=== PATIENT | male | born 2000 | race Caucasian/White ===

== ENCOUNTER 2025-01-28 15:58 | Inpatient (IN) | payer OTHER, SELFPAY ==
--- OUTSIDE RECORDS SUMMARY | 2025-01-28 02:11 | XMS_ITS | Encounter Summary ---
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 Appearing Eyelids Neck: Supple Respiratory: No respiratory distress Cardio-Vascular: Normal Rate Abdomen: Non-distended Neurological: No focal neurological deficits appreciated Skin: Warm, Dry ED COURSE & MEDICAL DECISION MAKING Labs TOXICOLOGY SCREEN, BLOOD - Abnormal Result Value Ref Range Acetaminophen Result,Blood <5 (*) 10 - 30 ug/mL Alcohol <10 <10 mg/dL Salicylate Level, Blood <1 <30 mg/dL CBC AND DIFFERENTIAL - Abnormal WBC 11.84 (*) 3.90 - 10.80 K/uL RBC 5.34 4.20 - 5.60 M/uL Hemoglobin 14.7 14.0 - 17.3 g/dL Hematocrit 44.8 40.0 - 49.0 % MCH 27.5 25.7 - 32.2 pg MCHC 32.8 32.0 - 36.0 g/dL MCV 84 82 - 102 fL RDW 13.6 12.0 - 15.0 % RDW-SD 41.8 32.9 - 69.6 fL Platelet Count 299 150 - 400 K/uL MPV 10.1 8.5 - 13.0 fL Neutrophil 64.0 43.0 - 74.0 % Lymphocyte 27.2 17.0 - 47.0 % Monocyte 7.3 5.0 - 12.0 % Eosinophil 0.5 0.1 - 6.0 % Basophil 0.3 0.0 - 2.0 % Immature Granulocyte ([place], Myelo, Promyelocyte) 0.7 0.0 - 5.0 % Absolute Neutrophil Count 7.58 1.50 - 8.10 K/uL Absolute Immature Granulocyte ([place], Myelo, Promyelocyte) 0.08 0.00 - 0.66 K/uL Absolute Lymphocyte Count 3.22 0.95 - 4.20 K/uL Absolute Monocyte Count 0.87 0.20 - 1.20 K/uL Absolute Eosinophil Count 0.06 0.06 - 0.60 K/uL Absolute Basophil Count 0.03 0.01 - 0.12 K/uL COMPREHENSIVE METABOLIC PANEL - Abnormal Sodium 137 135 - 146 mmol/L Potassium 4.1 3.4 - 5.2 mmol/L Chloride 99 98 - 110 mmol/L Total CO2/Bicarbonate 26 24 - 32 mmol/L Anion Gap 13 2 - 15 mmol/L BUN 16 6 - 20 mg/dL Creatinine, Blood 0.90 0.60 - 1.30 mg/dL Glucose, Blood 96 70 - 100 mg/dL Calcium 9.7 8.5 - 10.5 mg/dL Total Protein 7.8 6.2 - 8.2 g/dL Albumin, Blood 4.6 3.4 - 5.2 g/dL Globulin Result 3.2 g/dL AST (SGOT) 34 11 - 40 U/L ALT (SGPT) 56 (*) 7 - 40 U/L Alkaline Phosphatase 85 40 - 130 U/L Total Bilirubin 0.3 0.2 - 1.2 mg/dL Estimated GFR(CKD-EPI) >120 >=60 mL/min/BSA SARS COV2/INFLUENZA A/B AND RSV - Normal Coronavirus SARS-CoV-2 Negative Negative Influenza A Negative Negative Influenza B Negative Negative RSV by PCR Negative Negative Narrative: Test performed with [employer] GeneXpert SARS-CoV-2 PCR assay. Negative results do not preclude SARS-CoV-2 infections and should not be used as the sole basis for treatment or other patient management decisions. DRUG SCREEN, URINE Amphetamines Screen, Urine Negative Negative Barbiturates Screen, Urine Negative Negative Benzodiazepine Screen, Urine Negative Negative Buprenorphine Screen, Urine Negative Negative Cannabinoids Screen, Urine Negative Negative Cocaine Metabolite Screen, Urine Negative Negative Fentanyl Screen, Urine Negative Negative Methadone Screen, Urine Negative Negative Opiates Screen, Urine Negative Negative Oxycodone Screen, Urine Negative Negative Comment Comment: The cut-off concentration for a positive result for each drug is listed below: Drug Cut-off value Amphetamines >1000 ng/mL Barbiturates >200 ng/mL Benzodiazepines >300 ng/mL Buprenorphine >5 ng/mL Cannabinoids >50 ng/mL Cocaine >300 ng/mL Fentanyl >5.0 ng/mL Opiates >300 ng/mL Methadone >300 ng/mL Oxycodone >100 ng/mL This is only a screening; positive results are not confirmed by a second method; The results must be used for medical purposes only. CBC AND DIFFERENTIAL Narrative: The following orders were created for panel order CBC and Differential. Procedure Abnormality Status --------- ------ CBC and Differential[[id number]] Abnormal Final result Please view results for these tests on the individual orders. No orders to display 24M in ED observation for SI. The patient's initial ED note, vital signs, and lab results were reviewed and interpreted. The patient was reevaluated. I agree with medical clearance. Patient's behavioral condition continues to be unstable. The patient requires further observation to help determine final disposition. We will monitor the patient for significant changes in medical or psychiatric status, observe and treat for agitation, psychosis or withdrawal, coordinate care with the mental health team and ensure the patient'ssafety. Psychiatry has completed their evaluation. They have found a bed for the patient at [facility]. Accepting MD is Dr. Ray. Patient taken out of ED observation and transferred to this facility in stable condition. Clinical Impression Suicidal ideation (Primary) Gerard Stringer MD 01/28/25 1315 * Psych Progress Note - Catherine Sutlana - 01/28/2025 6:08 AM EDT Tabitha is waiting for admission to [facility]. * Attestation Note - Yan Batista MD - 01/28/2025 2:11 AM EDT [facility] ED Attestation Note 24-year-old male presenting with suicidal ideation. Seen by behavioral health team and he reports he wants to kill himself. Patient on section 12. Plan for inpatient psychiatric hospitalization. Planfor ED observation for ongoing management. Patient seen primarily by PA. I approved management plan. Please see their note for full details regarding this patient encounter. I personally made/approved the management plan and take responsibility for the patient management. MD Yan Loo MD 01/28/25 0455 documented in this encounter Plan of Treatment Not on file documented as of this encounter Procedures Procedure Name Priority Date/Time Associated Diagnosis Comments SARS COV2/INFLUENZA A/B AND RSV STAT 01/28/2025 5:53 AM EDT DRUG SCREEN, URINE STAT 01/28/2025 5: 53 AM EDT CBC AND DIFFERENTIAL STAT 01/28/2025 5:44 AM EDT TOXICOLOGY SCREEN, BLOOD STAT 01/28/2025 5:44 AM EDT CBC AND DIFFERENTIAL STAT 01/28/2025 5:44 AM EDT COMPREHENSIVE METABOLIC PANEL STAT 01/28/2025 5:44 AM EDT documented in this encounter Results * Covid/Flu/RSV (Rapid) (01/28/2025 5:53 AM EDT) Coronavirus SARS-CoV-2 Negative Negative 01/28/2025 6:35 AM EDT [facility] Influenza A Negative Negative 01/28/2025 6:35 AM EDT [facility] Influenza B Negative Negative 01/28/2025 6:35 AM EDT [facility] RSV by PCR Negative Negative 01/28/2025 6:35 AM [facility] Respiratory SWAB OF INTERNAL NOSE / Unknown Collection / Unknown 01/28/2025 5:53 AM EDT 01/28/2025 5:56 AM EDT [facility] - 01/28/2025 6:35 AM EDT Test performed with [employer] GeneXpert SARS-CoV-2 PCR assay. Negative results do not preclude SARS-CoV-2 infections and should not be used as the sole basis for treatment or other patient management decisions. us Yan Batista MD BODY FLUIDS AND STOOLS ORD ERABLES Final Result [facility] [address] [place] [address], * Drug Screen, Urine (01/28/2025 5:53 AM EDT) Amphetamines Screen, Urine Negative Negative 01/28/2025 7:07 AM [facility] Barbiturates Screen, Urine Negative Negative [facility] Benzodiazepine Screen, Urine Negative Negative 01/28/2025 7:07 AM [facility] Buprenorphine Screen, Urine Negative Negative 01/28/2025 7:07 AM [facility] Cannabinoids Screen, Urine Negative Negative 01/28/2025 7:07 AM [facility] Cocaine Metabolite Screen, Urine Negative Negative 01/28/2025 7:07 AM [facility] Fentanyl Screen, Urine Negative Negative 01/28/2025 7:07 AM [facility] Methadone Screen, Urine Negative Negative 01/28/2025 7:07 AM [facility] Opiates Screen, Urine Negative Negative 01/28/2025 7:07 AM [facility] Oxycodone Screen, Urine Negative Negative [facility]25 7[facility] Comment 01/28/2025 7:07 AM [facility] Comment: The cut-off concentration for a positive result for each drug is listed below: Drug Cut-off value Amphetamines >1000 ng/mL Barbiturates >200 ng/mL Benzodiazepines >300 ng/mL Buprenorphine >5 ng/mL Cannabinoids >50 ng/mL Cocaine >300 ng/mL Fentanyl >5.0 ng/mL Opiates >300 ng/mL Methadone >300 ng/mL Oxycodone >100 ng/mL This is only a screening; positive results are not confirmed by a second method; The results must be used for medical purposes only. Urine URINE SPECIMEN / Unknown Collection / Unknown 01/28/2025 5:53 AM EDT 01/28/2025 5:56 AM EDT us Dana ACEVEDO URINE ORDERABLES Final Result [facility] [address] [place] [address], [place] * (ABNORMAL) Comprehensive Metabolic Panel (01/28/2025 5:44 AM EDT) Sodium 137 135 - 146 mmol/L 01/28/2025 6:33 AM [facility] Potassium 4.1 3.4 - 5.2 mmol/L 01/28/2025 6:33 AM [facility] Chloride 99 98 - 110 mmol/L 01/28/2025 6:33 AM [facility] Total CO2/Bicarbonate 26 24 - 32 mmol/L 01/28/2025 6:33 AM [facility] Anion Gap 13 2 - 15 mmol/L 01/28/2025 6:33 AM [facility] BUN 16 6 - 20 mg/dL 01/28/2025 6:33 AM [facility] Creatinine, Blood 0.90 0.60 - 1.30 mg/dL 01/28/2025 6:33 AM [facility] Glucose, Blood 96 70 - 100 mg/dL 01/28/2025 6:33 AM [facility] Calcium 9.7 8.5 - 10.5 mg/dL 01/28/2025 6:33 AM [facility] Total Protein 7.8 6.2 - 8.2 g/dL 01/28/2025 6:33 AM [facility] Albumin, Blood 4.6 3.4 - 5.2 g/dL 01/28/2025 6:33 AM [facility] Globulin Result 3.2 g/dL 6:33 AM [facility] AST (SGOT) 34 11 - 40 U/L 01/28/2025 6:33 AM [facility] ALT (SGPT) 56(H) 7 - 40 U/L 01/28/2025 6:33 AM [facility] Alkaline Phosphatase 85 40 - 130 U/L 01/28/2025 6:33 AM [facility] Total Bilirubin 0.3 0.2 - 1.2 mg/dL 01/28/2025 6:33 AM [facility] Estimated GFR(CKD-EPI) >120 >=60 mL/min/BSA 01/28/2025 6:33 AM [facility] Blood PERIPHERAL BLOOD SPECIMEN / Unknown Venipuncture / Unknown 01/28/2025 5:44 AM EDT 01/28/2025 5:51 AM EDT us Dana ACEVEDO LAB BLOOD ORDERABLES Final Resul t [facility] [address] [place] [address], [place] * (ABNORMAL) CBC and Differential (01/28/2025 5:44 AM EDT) WBC 11.84(H) 3.90 - 10.80 K/uL 01/28/2025 5:55 AM [facility] RBC 5.34 4.20 - 5.60 M/uL 01/28/2025 5:55 AM [facility] Hemoglobin 14.7 14.0 - 17.3 g/dL 01/28/2025 5:55 AM [facility] Hematocrit 44.8 40.0 - 49.0 % 01/28/2025 5:55 AM [facility] MCH 27.5 25.7 - 32.2 pg 01/28/2025 5:55 AM [facility] MCHC 32.8 32.0 - 36.0 g/dL 01/28/2025 5:55 AM [facility] MCV 84 82 - 102 fL 01/28/2025 5:55 AM [facility] RDW 13.6 12.0 - 15.0 % 01/28/2025 5:55 AM [facility] RDW-SD 41.8 32.9 - 69.6 fL 01/28/2025 5:55 AM [facility] Platelet Count 299 150 - 400 K/uL 01/28/2025 5:55 AM [facility] MPV 10.1 8.5 - 13.0 fL 01/28/2025 5:55 AM [facility] Neutrophil 64.0 43.0 - 74.0 % 01/28/2025 5:55 AM [facility] Lymphocyte 27.2 17.0 - 47.0 % 01/28/2025 5:55 AM [facility] Monocyte 7.3 5.0 - 12.0 % 01/28/2025 5:55 AM [facility] Eosinophil 0.5 0.1 - 6.0 % 01/28/2025 5:55 AM [facility] Basophil 0.3 0.0 - 2.0 % 01/28/2025 5:55 AM [facility] Immature Granulocyte ([place], Myelo, Promyelocyte) 0.7 0.0 - 5.0 % 01/28/2025 5:55 AM [facility] Absolute Neutrophil Count 7.58 1.50 - 8.10 K/uL 01/28/2025 5:55 AM [facility] Absolute Immature Granulocyte ([place], Myelo, Promyelocyte) 0.08 0.00 - 0.66 K/uL 01/28/2025 5:55 AM [facility] Absolute Lymphocyte Count 3.22 0.95 - 4.20 K/uL 01/28/2025 5:55 AM EDT [facility] Absolute Monocyte Count 0.87 0.20 - 1.20 K/uL 01/28/2025 5:55 AM EDT [facility] Absolute Eosinophil Count 0.06 0.06 - 0.60 K/uL 01/28/2025 5:55 AM EDT [facility] Absolute Basophil Count 0.03 0.01 - 0.12 K/uL 01/28/2025 5:55 AM EDT [facility] Blood PERIPHERAL BLOOD SPECIMEN / Unknown Venipuncture / Unknown 01/28/2025 5:44 AM EDT 01/28/2025 5:51 AM EDT us Danagertrudis Kimballa PA LAB BLOOD ORDERABLES Final Resul t Performing Organization Address City/[facility] Co de Phone Number [facility] [address] [place] [address], [place] * (ABNORMAL) Plasma Toxicology Screen (01/28/2025 5:44 AM EDT) Acetaminophen Result,Blood <5(L) 10 - 30 ug/mL 01/28/2025 6:52 AM EDT [facility] Alcohol <10 <10 mg/dL 01/28/2025 6:52 AM [facility] Salicylate Level, Blood <1 <30 mg/dL 01/28/2025 6:52 AM EDT [facility] Blood PERIPHERAL BLOOD SPECIMEN / Unknown Venipuncture / Unknown 01/28/2025 5:44 AM EDT 01/28/2025 5:51 AM EDT us Dana Jazmine Kimballa PA LAB BLOOD ORDERABLES Final Resul t Performing Organization Address [facility] Co de Phone Number [facility] [address] [place] [address], [place] documented in this encounter Visit Diagnoses Diagnosis Suicidal ideation- Primary Major depressive disorder, recurrent, severe without psychotic features (CMS-HCC) documented in this encounter Additional Health Concerns Infection Onset Date Last Indicated Resolved Time Rule-Out Respiratory Virus 01/28/2025 01/28/2025 1 6:35 AM EDT documented as of this encounter Care Teams Birth Certificate Clerk Relationship Specialty Start Date End Date Mukul Grajeda [address] [place] [id number] PCP - Insurance Assigned PCP 04/20/23 Unknown, Provider, [address] [place] [id number] PCP - General 01/28/25 Unknown, Provider, [address] [place] [address] 01/01/25 documented as of this encounter
[2025-01-28 16:11] VITALS: BMI 46.6
[2025-01-28 16:12] VITALS: BP 140/88; PULSE 90; RESP 16; TEMP 36.4; O2SAT 99
--- NOTE | 2025-01-28 19:15 | PC.ADMIT ---
Tabitha is a 24 yr old male admitted to [facility], on a CV, from [facility]. He was BIBA to [facility] [place] after being found in his car on the side of the road, in his car, crying & banging his head on the steering wheel. Tabitha had been speeding on the highway with a plan to kill himself. He told EMS that his life is worthless, he is a disappointment, and nobody is proud of him. His mother reported that before leaving home in his car, he was crying & inconsolable. Tabitha is A&O x 4, very subdued, with limited participation during the admission process. He was quiet & cooperative with clothing changeover. Tabitha avoided eye contact, looking downward, endorsing high depression & anxiety.? When asked if he?s feeling suicidal, Tabitha wouldn?t answer the question, but he was able to contract for safety here on the unit. He denies HI/AVH. Trauma history wasn?t discussed.? He only drinks alcohol only occasionally & smokes marijuana occasionally. Tox screen was negative.. His skin check is unremarkable with the exception of small abrasion on his forehead. Tabitha was oriented to the unit & placed on 15 min safety checks.
[2025-01-28 19:49] VITALS: BP 116/73; PULSE 109; RESP 18; TEMP 36.4; O2SAT 94
--- OUTSIDE RECORDS SUMMARY | 2025-01-28 20:06 | XMS_ITS | Encounter Summary ---
Author Organization [facility] iance Address [address] [place] [address] Care Team Providers Care Waste Management Recycling Technician Name Role Phone Mukul Grajeda MD Primary Care Provider + [phone] Mukul Grajeda MD Unavailable [phone] Reason for Visit * Reason Onset Date Comments Med Question 04/19/2024 ZEPBOUND Encounter Details Date Type Department Care Team ([facility] st Contact Info) Description 04/19/[address] [place] [address] Mukul Grajeda MD [address] [place], [place] [id number] Med Question (ZEPBOUND) Social History Tobacco Use Types Packs/Day Years Used Date Smoking Tobacco: Never Smokeless Tobacco: Never Sex and Gender Information Value Date Recorded Sex Assigned at Not on file Legal Sex Male 3:01 PM EDT Gender Identity Male 02/08/2024 10:16 AM EST Sexual Orientation Queer, pansexual, an d/or questioning 02/08/2024 10:16 AM EST documented as of this encounter Miscellaneous Notes * Telephone Encounter - Ana Parnellque - 04/19/2024 12:44 PM EST Sukumar, RX for zepbound received.[facility] together w/[facility] has updated their GLP-1 for weight loss Criteria. Trial and failure of >= three months of Phentermine or one of the following, Contraindication OR adverse reaction to phentermine that is allergic in nature or cannot be expected or managed as part of weight loss therapy. Please review documented in this encounter Plan of Treatment Not on file documented as of this encounter Visit Diagnoses Not on filedocumented in this encounter Care Teams Waste Management Recycling Technician Relationship Specialty Start Date End Date Mukul Grajeda MD [address] [place] [id number] PCP - General Family Medicine 03/05/20 Mukul Grajeda MD [address] [place] [address] PCP - Insurance PCP 02/08/24 documented as of this encounter
--- OUTSIDE RECORDS SUMMARY | 2025-01-28 20:06 | XMS_ITS | Encounter Summary ---
Author Organization [facility] Address [address] [place] [address] Care Team Providers Care Quantitative Equity Head Name Role Phone Unknown, Provider Unavailable Unavailable Mukul Grajeda Unavailable [phone] Unknown, Provider Primary Care Provider Unava ilable Encounter Details Date Type Department Care Team (Latest Contact Info) Description 01/28/2025 Travel Social History Tobacco Use Types Packs/Day Years [...] any time in the past 12 m [facility], were you homeless or living in a prison (including now)? No 01/01/2025 [facility] Utilities Answer Date Recorded In the [...] on file documented as of this encounter Functional Status * Are you deaf or do you have serious difficulty hearing? Answer Date of Assessment Author No 01/28/2025 2:36 AM EDT Jazmine Mccauley * Are you blind or do you have serious difficulty seeing, even when wearing glasses? Answer Date of Assessment Author No 01/28/2025 2:36 AM EDT Garrick A shley * Do you have serious difficulty walking or climbing stairs? Answer Date of Assessment Author No 01/28/2025 2:36 AM EDT Garrick A shley * Do you have difficulty dressing or bathing? Answer Date of Assessment Author No 01/28/2025 2:36 AM EDT Garrick A shley * Because of a physical, mental, or emotional condition, do you have difficulty doing errands alone such as visiting the doctor? Answer Date of Assessment Author No 01/28/2025 2:36 AM EDT Garrick A michiley documented as of this encounter Mental Status * Because of a physical, mental, or emotional condition, do you have serious difficulty concentrating, remembering, or making decisions? Answer Entry Date Author No 01/28/2025 2:36 AM EDT Jazmine Mccauley documented in this encounter Plan of Treatment Not on file documented as of this encounter Visit Diagnoses Not on filedocumented in this encounter Additional Health Concerns Infection Onset Date Last Indicated Resolved Time Rule-Out Respiratory Virus 01/28/2025 01/28/2025 1 6:35 AM EDT documented as of this encounter Care Teams Quantitative Equity Head Relationship Specialty Start Date End Date Mukul Grajeda [address] [place] [id number] PCP - Insurance Assigned PCP 04/20/23 Unknown, Provider, [address] [place] [id number] PCP - General 01/28/25 Unknown, Provider, [address] [place] [address] 01/01/25 documented as of this encounter
--- OUTSIDE RECORDS SUMMARY | 2025-01-28 20:06 | XMS_ITS | Encounter Summary ---
Author Organization [employer] [facility] iance Address [address] [place] [address] Care Team Providers Care Extra Gang Supervisor Name Role Phone Mukul Grajeda MD Primary Care Provider + [phone] Mukul Grajeda MD Unavailable [phone] Reason for Visit * Reason Onset Date Comments Imm/Inj 02/08/2024 tdap Encounter Details Date Type Department Care Team ([facility] st Contact Info) Description 02/08/[address] [place] [address] Mukul Grajeda MD [address] [place] [address] Imm/Inj (tdap) Social History Tobacco Use Types Packs/Day Years Used Date Smoking Tobacco: Never Smokeless Tobacco: Never Sex and Gender Information Value Date Recorded Sex Assigned at Not on file Legal Sex Male 3:01 PM EDT Gender Identity Male 02/08/2024 10:16 AM EST Sexual Orientation Queer, pansexual, an d/or questioning 02/08/2024 10:16 AM EST documented as of this encounter Miscellaneous Notes * Telephone Encounter - Susi Olivera - 02/08/2024 10:45 AM EST Nurse from [facility] called the [facility] to complete a benefit analysis for the tdap Vaccine. The vaccine is covered under the patient???s [facility] medical coverage. Please choose Private documented in this encounter Plan of Treatment Not on file documented as of this encounter Visit Diagnoses Not on filedocumented in this encounter Care Teams Extra Gang Supervisor Relationship Specialty Start Date End Date Mukul Grajeda MD [address] [place] [address] PCP - General Family Medicine 03/05/20 Mukul Grajeda MD [address] [place] [address] PCP - Insurance PCP 02/08/24 documented as of this encounter
--- OUTSIDE RECORDS SUMMARY | 2025-01-28 20:06 | XMS_ITS | Clinical Summary ---
Author Organization [facility] Address [address] [place] [address] Care Team Providers Care Sign Artist Name Role Phone Unknown, Provider Unavailable Unavailable Mukul Grajeda Unavailable [phone] Unknown, Provider Primary Care Provider Unava ilable Allergies Active Allergy Reactions Criticality Noted Date Comments Amoxicillin Unknown 11/15/2019 Penicillins Rash Low 01/01/2025 Medications HYDROcodone-acetami nophen (NORCO) 5-325 mg per tablet Take 1 tablet by mouth every 4 hours as needed for pain. 15 tablet 0 Active ondansetron (ZOFRAN ODT) 4 MG disintegrating tablet Take 1 tablet (4 mg total) by mouth every 8 hours as needed for nausea. 15 tablet 0 Active ondansetron (ZOFRAN) 4 MG tablet Take 1 tablet (4 mg total) by mouth every 6 hours for 12 doses. 12 tablet 4 Active tamsulosin (FLOMAX) 0.4 mg cap 24 hr capsule Take 1 capsule (0.4 mg total) by mouth daily for 15 doses. 15 capsule 4 Active oxyCODONE-acetamino phen (PERCOCET) 5-325 mg per tablet Take 1 tablet by mouth every 6 hours as needed for pain for up to 15 doses. 15 tablet 4 Active Encounters Date Type Department Care Team Description 01/28/2025 2:11 AM EDT - 01/28/2025 2:08 PM EDT Hospital Encounter [facility] Emergency Department [address] [place] [address] Yan Batista MD Shestak, Christopher, MD Suicidal ideation (Primary Dx); Major depressive disorder, recurrent, severe without psychotic features (CMS-HCC) Discharge Disposition: Psychiatric Hospital 01/28/2025 Travel 01/01/2025 7:41 PM EDT - 01/01/2025 10:17 PM EDT Emergency [facility] [address] [place] [id number] Marijuana use (Primary Dx) Discharge Disposition: Home or Self Care 01/01/2025 Travel from Last 3 Months Family History Medical History Relation Comments Bipolar disorder Cousin Suicide Cousin Depression Maternal Grandmother Depression Sister Relation Status Comments Cousin Maternal Grandmother Sister Social History Tobacco Use Types Packs/Day Years [...] any time in the past 12 m [place], were you homeless or living in a assisted (including now)? No 01/01/2025 [facility] Utilities Answer Date Recorded In the past 12 months has th e [employer], gas, oil, or water company threatened to [...] PM EDT Sexual Orientation Not on file Last Filed Vital Signs Vital Sign Reading [...] Mass Index 46.46 01/28/2025 2:22 AM EDT Plan of Treatment Health Maintenance Due Date Last Done Comments Depression Screening 2006 Meningococcal B Vaccines (1 of 2 - Standard) 2018 Hepatitis C Screening 2020 DTaP,Tdap,and Td Vaccines (1 - Tdap) 2021 02/08/2024 COVID-19 Vaccine (1 - 2023-2 5 season) 2024 02/08/2024 Influenza Vaccine (#1) 2024 4, 03/16/2022 Blood Pressure 01/01/2026 01/28/2025 Meningococcal Vaccines Aged Out No lo nger eligible based on patient's age to complete this topic Pneumococcal Vaccine Aged Out No long er eligible based on patient's age to complete this topic Procedures Procedure Name Priority Date/Time Associated Diagnosis Comments SARS COV2/INFLUENZA A/B AND RSV STAT 01/28/2025 5:53 AM EDT DRUG SCREEN, URINE STAT 01/28/2025 5: 53 AM EDT CBC AND DIFFERENTIAL STAT 01/28/2025 5:44 AM EDT COMPREHENSIVE METABOLIC PANEL STAT 01/28/2025 5:44 AM EDT CBC AND DIFFERENTIAL STAT 01/28/2025 5:44 AM EDT TOXICOLOGY SCREEN, BLOOD STAT 01/28/2025 5:44 AM EDT ECG 12-LEAD STAT 01/01/2025 7:55 PM EDT from Last 3 Months Results * Covid/Flu/RSV (Rapid) (01/28/2025 5:53 AM EDT) Coronavirus SARS-CoV-2 Negative Negative 01/28/2025 6:35 AM EDT [facility] Influenza A Negative Negative 01/28/2025 6:35 AM EDT [facility] Influenza B Negative Negative 01/28/2025 6:35 AM EDT [facility] RSV by PCR Negative Negative 01/28/2025 6:35 AM [facility] Respiratory SWAB OF INTERNAL NOSE / Unknown Collection / Unknown 01/28/2025 5:53 AM EDT 01/28/2025 5:56 AM EDT [facility] - 01/28/2025 6:35 AM EDT Test performed with [employer] GeneXpert SARS-CoV-2 PCR assay. Negative results do not preclude SARS-CoV-2 infections and should not be used as the sole basis for treatment or other patient management decisions. us Yan Batista MD BODY FLUIDS AND STOOLS ORD ERABLES Final Result [facility] [address] [place] [address], * Drug Screen, Urine (01/28/2025 5:53 AM EDT) Amphetamines Screen, Urine Negative Negative 01/28/2025 7:07 AM EDT [facility] Barbiturates Screen, Urine Negative Negative 01/28/2025 7:07 AM EDT [facility] Benzodiazepine Screen, Urine Negative Negative 01/28/2025 7:07 AM EDT [facility] Buprenorphine Screen, Urine Negative Negative 01/28/2025 7:07 AM EDT [facility] Cannabinoids Screen, Urine Negative Negative 01/28/2025 7:07 AM EDT [facility] Cocaine Metabolite Screen, Urine Negative Negative 01/28/2025 7:07 AM [facility] Fentanyl Screen, Urine Negative Negative 01/28/2025 7:07 AM [facility] Methadone Screen, Urine Negative Negative 01/28/2025 7:07 AM [facility] Opiates Screen, Urine Negative Negative 01/28/2025 7:07 AM [facility] Oxycodone Screen, Urine Negative Negative 01/28/2025 7:07 AM [facility] Comment 01/28/2025 7:07 AM [facility] Comment: The cut-off concentration [...] us Dana ACEVEDO URINE ORDERABLES Final Result [facility] [address] [place] [address], [place] * (ABNORMAL) CBC and Differential (01/28/2025 5:44 AM EDT) WBC 11.84(H) 3.90 - 10.80 K/uL 01/28/2025 5:55 AM EDT [facility] RBC 5.34 4.20 - 5.60 M/uL 01/28/2025 5:55 AM [facility] Hemoglobin 14.7 14.0 - 17.3 g/dL 01/28/2025 5:55 AM [facility] Hematocrit 44.8 40.0 - 49.0 % 01/28/2025 5:55 AM [facility] MCH 27.5 25.7 - 32.2 pg 01/28/2025 5:55 AM [facility] MCHC 32.8 32.0 - 36.0 g/dL 01/28/2025 5:55 AM [facility] MCV 84 82 - 102 fL 01/28/2025 5:55 AM [facility] RDW 13.6 12.0 - 15.0 % 01/28/2025 5:55 AM [facility] RDW-SD 41.8 32.9 - 69.6 fL 01/28/2025 5:55 AM [facility] Platelet Count 299 150 - 400 K/uL 01/28/2025 5:55 AM [facility] MPV 10.1 8.5 - 13.0 fL 01/28/2025 5:55 AM [facility] Neutrophil 64.0 43.0 - 74.0 % 01/28/2025 5:55 AM [facility] Lymphocyte 27.2 17.0 - 47.0 % 01/28/2025 5:55 AM [facility] Monocyte 7.3 5.0 - 12.0 % 01/28/2025 5:55 AM [facility] Eosinophil 0.5 0.1 - 6.0 % 01/28/2025 5:55 AM [facility] Basophil 0.3 0.0 - 2.0 % 01/28/2025 5:55 AM [facility] Immature Granulocyte ([place], Myelo, Promyelocyte) 0.7 0.0 - 5.0 % 01/28/2025 5:55 AM [facility] Absolute Neutrophil Count 7.58 1.50 - 8.10 K/uL 01/28/2025 5:55 AM [facility] Absolute Immature Granulocyte ([place], Myelo, Promyelocyte) 0.08 0.00 - 0.66 K/uL 01/28/2025 5:55 AM [facility] Absolute Lymphocyte Count 3.22 0.95 - 4.20 K/uL 01/28/2025 5:55 AM [facility] Absolute Monocyte Count 0.87 0.20 - 1.20 K/uL 01/28/2025 5:55 AM EDT [facility] Absolute Eosinophil Count 0.06 0.06 - 0.60 K/uL 01/28/2025 5:55 AM EDT [facility] Absolute Basophil Count 0.03 0.01 - 0.12 K/uL 01/28/2025 5:55 AM EDT [facility] Blood PERIPHERAL BLOOD SPECIMEN / Unknown Venipuncture / Unknown 01/28/2025 5:44 AM EDT 01/28/2025 5:51 AM EDT us Dana Jazmine Kimballa PA LAB BLOOD ORDERABLES Final Resul t [facility] [address] [place] [address], [place] * (ABNORMAL) Plasma Toxicology Screen (01/28/2025 5:44 AM EDT) Acetaminophen Result,Blood <5(L) 10 - 30 ug/mL 01/28/2025 6:52 AM EDT [facility] Alcohol <10 <10 mg/dL 01/28/2025 6:52 AM T [facility] Salicylate Level, Blood <1 <30 mg/dL 01/28/2025 6:52 AM EDT [facility] Blood PERIPHERAL BLOOD SPECIMEN / Unknown Venipuncture / Unknown 01/28/2025 5:44 AM EDT 01/28/2025 5:51 AM EDT us Dana Kimballa PA LAB BLOOD ORDERABLES Final Resul t [facility] [address] [place] [address], [place] * (ABNORMAL) Comprehensive Metabolic Panel (01/28/2025 5:44 AM EDT) Sodium 137 135 - 146 mmol/L 01/28/2025 6:33 AM EDT [facility] Potassium 4.1 3.4 - 5.2 mmol/L 01/28/2025 6:33 AM EDT [facility] Chloride 99 98 - 110 mmol/L 01/28/2025 6:33 AM [facility] Total CO2/Bicarbonate 26 24 - 32 mmol/L 01/28/2025 6:33 AM [facility] Anion Gap 13 2 - 15 mmol/L 01/28/2025 6:33 AM [facility] BUN 16 6 - 20 mg/dL 01/28/2025 6:33 AM [facility] Creatinine, Blood 0.90 0.60 - 1.30 mg/dL 01/28/2025 6:33 AM [facility] Glucose, Blood 96 70 - 100 mg/dL 01/28/2025 6:33 AM [facility] Calcium 9.7 8.5 - 10.5 mg/dL 01/28/2025 6:33 AM [facility] Total Protein 7.8 6.2 - 8.2 g/dL 01/28/2025 6:33 AM [facility] Albumin, Blood 4.6 3.4 - 5.2 g/dL 01/28/2025 6:33 AM [facility] Globulin Result 3.2 g/dL 6:33 AM [facility] AST (SGOT) 34 11 - 40 U/L 01/28/2025 6:33 AM [facility] ALT (SGPT) 56(H) 7 - 40 U/L 01/28/2025 6:33 AM [facility] Alkaline Phosphatase 85 40 - 130 U/L 01/28/2025 6:33 AM [facility] Total Bilirubin 0.3 0.2 - 1.2 mg/dL 01/28/2025 6:33 AM [facility] Estimated GFR(CKD-EPI) >120 >=60 mL/min/BSA 01/28/2025 6:33 AM [facility] Blood PERIPHERAL BLOOD SPECIMEN / Unknown Venipuncture / Unknown 01/28/2025 5:44 AM EDT 01/28/2025 5:51 AM EDT us Dana ACEVEDO LAB BLOOD ORDERABLES Final Resul t [facility] [address] [place] [address], [place] * ECG 12 lead, to be obtained, chest pain (01/01/2025 7:55 PM EDT) Ventricular Heart Rate 101 BPM EKG WIN Atrial Heart Rate 101 BPM EKG WIN NM Interval 120 ms EKG WIN QRSD Interval 86 ms EKG WIN QT Interval 382 ms EKG WIN QTC Interval 495 ms EKG WIN P [place] 53 degrees EKG WIN R [place] 15 degrees EKG WIN T Wave [place] 1 degrees EKG WIN 01/01/2025 7:54 PM EDT 01/02/2025 10:21 PM EDT Narrative EKG WIN - 01/02/2025 10:21 PM EDT Sinus tachycardia Nonspecific ST-T wave abnormalities Prolonged QT No previous ECGs available Confirmed by Vesta Goodwin ([id number]) on 01/02/2025 10:21:40 PM Procedure Note Vesta Goodwin MD - 01/02/[address]-T wave abnormalities Prolonged QT No previous ECGs available Confirmed by Vesta Goodwin ([id number]) on 01/02/2025 10:21:40 PM Miroslava ACEVEDO ECG ORDERABLES Final Result Performing Organization Address City/State/[facility] Co de Phone Number EKG WIN [address] [place] [address] from Last 3 Months Insurance [facility] PUBLIC [employer]ANS [facility] [employer] Advance Directives * Full Code (Latest Code Status on File) Date Activated Date Inactivated Comments 01/28/2025 4:54 AM Question Answer Comments Discussed with/per: Patient Care Teams Sign Artist Relationship Specialty Start Date End Date Mukul Grajeda Shoaib [address] [place] [id number] PCP - Insurance Assigned PCP 04/20/23 Unknown, Provider, [address] [place] [id number] PCP - General 01/28/25 Unknown, Provider, [address] [place] [address] 01/01/25
--- OUTSIDE RECORDS SUMMARY | 2025-01-28 20:06 | XMS_ITS | Clinical Summary ---
Author Organization [employer] Address [address] [place] [address] Care Team Providers Care Claims Administrator Name Role Phone Mukul Grajeda MD Primary Care Provider [phone] Mukul Grajeda MD Unavailable [phone] Allergies Active Allergy Reactions Criticality Noted Date Comments Penicillins Other (See Comments) 03/05/2020 Itching Medications naproxen (NAPROSYN) 500 MG tablet Take 1 tablet by mouth in the morning and 1 tablet in the evening. Take with meals. Do all this for 10 days. 20 tablet 04/04/2024 Active traZODone (DESYREL) 100 MG tabletIndicatio ns:Major depression, recurrent, chronic (HCC),Anxiety Take 1 tablet by mouth nightly 90 tablet 1 08/15/2024 Active Active Problems Problem Noted Date Diagnosed Date Morbid obesity with BMI of 40.0-44.9, adult 07/02 Major depression, recurrent, chronic 07/14/2021 Anxiety 07/14/2021 Severe obesity due to excess calories with body mass index (BMI) greater than 99th percentile for age in pediatric patient 09/27/2020 Prediabetes 03/05/2020 Resolved Problems Problem Noted Date Diagnosed Date Resolved Date Overweight 03/05/2020 03/05/2020 Immunizations Immunization Administration Dates Next Due HPV-9 02/08/2024 Influenza Trivalent Preservative Free 0.5 mL 6m+ 02/08/2024 Influenza Virus Quad Presv Free Vacc 6 Mo and Ol xavier, IM 03/16/2022 Moderna >12yo Covid-19 02/08/2024 Tdap 02/08/2024 Family History Medical History Relation Comments Diabetes Paternal Grandfather Diabetes Paternal Grandmother Cancer - Breast FamHxNeg Cancer - Colon FamHxNeg Relation Status Comments Father Alive Maternal Grandfather Alive Maternal Grandmother Alive Mother Alive Paternal Grandfather Alive Paternal Grandmother Alive Sister Alive Social History Tobacco Use Types Packs/Day Years Used Date Smoking Tobacco: Never Smokeless Tobacco: Never Tobacco Cessation:Counseling Given: Not Answered Sex and Gender Information Value Date Recorded Sex Assigned at Not on file Legal Sex Male 3:01 PM EDT Gender Identity Male 02/08/2024 10:16 AM EST Sexual Orientation Queer, pansexual, an d/or questioning 02/08/2024 10:16 AM EST Last Filed Vital Signs Vital Sign Reading Time Taken Comments Blood Pressure 120/78 06/13/2024 2:54 PM EDT Pulse 99 06/13/2024 2:45 PM EDT Temperature 35.9 C (96.7 F) 06/13/2024 2:45 PM EDT Respiratory Rate 18 04/04/2024 10:0 5 AM EST Oxygen Saturation 97% 06/13/2024 2:45 PM EDT Inhaled Oxygen Concentration - - Weight 161.4 kg (355 lb 12.8 oz) 06/13/2024 2:45 PM EDT Height 181.6 cm (5' 11.5 ) 06/13/2024 2:45 PM ED T Body Mass Index 48.93 06/13/2024 2:45 PM EDT Plan of Treatment Health Maintenance Due Date Last Done Comments HIV SCREENING 09/07/2015 CHLAMYDIA SCREEN 2017 MENINGOCOCCAL B VACCINE SERI ES (1 of 2 - Standard) 2018 HPV VACCINE SERIES (2 - Male 3-dose series) 03/07/2024 02/08/2024 COVID-19 Vaccine ( - 2024-2 6 season) 2024 02/08/2024, 08/20/2020, 07/15/2020 INFLUENZA VACCINE (#1) 2024 , 03/16/2022 AWQ Questionnaire 02/07/2025 02/08/2024, 02/08/2024 Contraceptive Care Screening 06/13/2025 06/13/2024 HEALTH CARE PROXY 03/16/2027 03/16/2022 LIPID SCREENING 02/07/2029 02/08/2024, 07/21/2021 TETANUS VACCINE (2 - Td or Tdap) 02/07/2034 02/08/2024 ZOSTER VACCINE (1 of 2) 2052 HEP C SCREEN Completed 03/16/2022 PHYSICAL EXAM Completed 03/16/2022, 03/19/2020 MENINGOCOCCAL (MCV4) VACCINE SERIES Aged Out No longer eligible b ased on patient's age to complete this topic PNEUMOCOCCAL VACCINE SERIES Aged Out No longer eligible based on patient's age to complete this topic Procedures Procedure Name Priority Date/Time Associated Diagnosis Comments LOW DENSITY LIPOPROTEIN DIRECT Routine 02/08/2024 11:03 AM EST Morbid obesity with BMI of 40.0-44.9, adult (HCC) HC HEPATITIS C ANTIBODY Routine 03/16/2022 4:48 PM EST Physical exam from Last 3 Months or Most Recently Relevant to Health Maintenance Results * LOW DENSITY LIPOPROTEIN DIRECT (02/08/2024 11:03 AM EST) LOW DENSITY LIPOPROTEIN DIRECT 101 0 - 189 mg/dL [facility] 02/08/2024 11:0 3 AM EST 02/08/2024 1:06 PM EST us Mukul Grajeda MD LABORATORY Final Result Performing Organization Address City/[facility]/[place] [address], * HEPATITIS C ANTIBODY (03/16/2022 4:48 PM EST) HEPATITIS C ANTIBODY NON-REACT OPAL NONREACTIVE [facility] 03/16/2022 4:48 PM EST 03/16/2022 7:37 PM EST us Esther GARCIASC [facility]AT[facility] [place] [address], [place] from Last 3 Months or Most Recently Relevant to Health Maintenance Insurance [facility] Advance Directives Documents on File Type Date Recorded Patient Director Of Student Aid Expl anation HC PROXY 03/16/2022 8:23 PM HC PROXY Care Teams Claims Administrator Relationship Specialty Start Date End Date Mukul Grajeda MD [address] [place] [address] PCP - General Family Medicine 03/05/20 Mukul Grajeda MD [address] [place] [address] PCP - Insurance PCP 02/08/24
[2025-01-29 08:00] VITALS: BP 146/76; PULSE 97; TEMP 36.6; O2SAT 96
--- NOTE | 2025-01-29 08:43 | HO.PM.IMCN ---
History of Present Illness Data of Consult Service Date: 01/29/25 Primary Care Provider: Unknown Physician HPI Reason for consult: Medical consult 24-year-old with past medical history of anxiety and depression, presented to [place] ED via EMS on a section [address] after being found in his side of the road by the police department crying and banging his head against his car we wheel and expressing SI. Outside workup reveals a negative tox screen, no metabolic abnormalities, no evidence of kidney or liver dysfunction. Mild leukocytosis, no anemia. On exam he is awake, alert, answering questions. No medical concerns. Review of Systems Review of Systems: Denies any shortness of breath, chest pain, headaches, dysuria, abdominal pain or discomfort, nausea, vomiting or diarrhea. Denies fever or chills. PMFSH Social History Household Members: Family Do you presently have visiting nurse or other home services: No Patient Tobacco Use Status: Never used Tobacco e-Cigarette/Vaping Use: Never Used Second Hand Smoke Exposure: No Currently Displaying Signs/Symptoms of Drug Intoxication Withdrawal: No Have you been hit, kicked, punched, or otherwise hurt by someone within the past year? If so, by whom?: No Do you feel safe in your current relationship?: No Current Relationship Is there a partner from a previous relationship who is making you feel unsafe now?: No Are you made to feel afraid or neglected: No Advance Directives: No Advance Directives Information Provided: No Do you have thoughts of harming others: None Do you have a plan to hurt others: No Plan Recently lost weight without trying: No Eating poorly because of decreased appetite: No Nutrition Risks: No Nutritional Risk Poor oral hygiene: No service: No Sexual orientation: Straight/Heterosexual Meds Allergies Allergy/AdvReac Type Severity Reaction Status Date / Time amoxicillin Allergy Unknown Unknown Verified 01/28/25 16:55 Penicillins Allergy Unknown Unknown Verified 01/28/25 16:55 Active Medications: Current Medications Acetaminophen (Acetaminophen 325 Mg Tablet) 650 mg PO Q6H PRN PRN Reason: Headache/Pain, Scale 1-10 Al Hydroxide/Mg Hydroxide (Magnesium Hydrox/Alum Hydrox 30 Ml Oral.Susp) 30 ml PO Q6H PRN PRN Reason: Heartburn/Nausea Hydroxyzine HCl (Hydroxyzine Hcl 25 Mg Tablet) 25 mg PO Q6H PRN PRN Reason: mild anxiety Magnesium Hydroxide (Milk Of Magnesia 30 Ml Oral.Susp) 30 ml PO DAILY PRN PRN Reason: Constipation Nicotine Polacrilex (Nicotine Polacrilex 2 Mg Gum) 4 mg BUCCAL Q2H PRN PRN Reason: Nicotine Cravings Trazodone HCl (Trazodone Hcl 50 Mg Tablet) 50 mg PO BEDTIME MRX1 PRN PRN Reason: Insomnia Trazodone HCl (Trazodone Hcl 100 Mg Tablet) 100 mg PO BEDTIME PAO Last Admin: 01/29/25 00:15 Dose: Not Given Home Medications ?Medication ?Instructions ?Recorded ?Confirmed ?Last Taken ?Type trazodone 100 mg tablet 100 mg PO BEDTIME 01/28/25 01/28/25 Unknown History Physical Exam Vital Signs and Narrative: Vital Signs: Last Vital Signs Temp 97.6 F 01/28/25 19:49 Pulse 109 H 01/28/25 19:49 Resp 18 01/28/25 19:49 BP 116/73 01/28/25 19:49 Pulse Ox 94 01/28/25 19:49 O2 Del Method Room Air 01/28/25 19:49 BMI result Body Mass Index 46.6 Alert and oriented X3, clam and cooperative. Answers questions. Neuro: CN II-X11 intact, no deficits, visual acuity intact EYES: PERRLA, EOM intact ENT: Hearing intact, MMM Cardiac: S1 S2 RRR, No ectopy Pulmonary: lungs clear to auscultation, No increased WOB. Abdominal: BS active in all 4 quadrants, no guarding or tenderness MSK: Strength 5/5 upper and lower extremities : Deferred Extremities: No edema in lower extremities Psych: Quiet and cooperative. Answering questions. Skin: Warm and dry, Intact Assessment and Plan (1) Suicide ideation: Status: Acute Plan 24-year-old admitted to behavioral health unit for treatment of worsening depression and suicidal ideation. Anxiety/depression/suicide ideation/insomnia Treatment per psychiatric team. Thank you for allowing me to participate in the care of this patient. Will follow with you, please notify medical provider with any changes in condition or concerns.
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
[2025-01-29 20:00] VITALS: BP 145/65; PULSE 102; RESP 18; TEMP 36.7; O2SAT 96
[2025-01-30 07:00] VITALS: BMI 46.5
[2025-01-30 08:00] VITALS: BP 124/63; PULSE 98; TEMP 36.6; O2SAT 98
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
[2025-01-30 20:00] VITALS: BP 130/64; PULSE 97; RESP 18; TEMP 35.9; O2SAT 95
[2025-01-31 07:58] VITALS: BP 150/74; PULSE 100; TEMP 36.6; O2SAT 97
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
[2025-01-31 20:00] VITALS: BP 133/88; PULSE 116; TEMP 36.3; O2SAT 98
[2025-02-01 08:00] VITALS: BP 152/88; PULSE 90; TEMP 36.1; O2SAT 97
--- NOTE | 2025-02-01 09:32 | HO.PSYCHPN ---
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 Patient agrees with titration of Zoloft. MSE: Pt is alert and oriented; behavior is less fidgety; out in the milieu and socializing with select peers; cooperative, friendly and calm; patient is not in distress; dressed in casual attire with adequate hygiene and grooming; mood is described as good and affect congruent; eye contact appropriate; Speech is normal rate, volume and prosody and not pressured; no psychomotor agitation/retardation present; thought process is organized and goal directed; Thought content is on tx; otherwise pertinent to relevant topics and without any delusional content, paranoid ideations or grandiosity; denies any SI/HI. Denies AVH and there is no evidence of perceptual disturbance. Patients insight and judgment appear intact. Diagnostics Vital Signs (24Hr): Vital Signs - 24 hr 01/31/25 20:00 02/01/25 08:00 Temperature 97.3 F 96.9 F Pulse Rate 116 H 90 Blood Pressure 133/88 152/88 H Pulse Oximetry 98 97 Oxygen Delivery Method Room Air Room Air BMI result Body Mass Index 46.5 Medications Medications Current Medications Acetaminophen (Acetaminophen 325 Mg Tablet) 650 mg PO Q6H PRN PRN Reason: Headache/Pain, Scale 1-10 Al Hydroxide/Mg Hydroxide (Magnesium Hydrox/Alum Hydrox 30 Ml Oral.Susp) 30 ml PO Q6H PRN PRN Reason: Heartburn/Nausea Hydroxyzine HCl (Hydroxyzine Hcl 25 Mg Tablet) 25 mg PO Q6H PRN PRN Reason: mild anxiety Magnesium Hydroxide (Milk Of Magnesia 30 Ml Oral.Susp) 30 ml PO DAILY PRN PRN Reason: Constipation Nicotine Polacrilex (Nicotine Polacrilex 2 Mg Gum) 4 mg BUCCAL Q2H PRN PRN Reason: Nicotine Cravings Sertraline HCl (Sertraline Hcl 50 Mg Tablet) 50 mg PO DAILY PAO Last Admin: 02/01/25 08:47 Dose: 50 mg Trazodone HCl (Trazodone Hcl 100 Mg Tablet) 100 mg PO BEDTIME PAO Last Admin: 01/31/25 20:36 Dose: 100 mg Allergies Allergies Allergy/AdvReac Type Severity Reaction Status Date / Time amoxicillin Allergy Unknown Unknown Verified 01/28/25 16:55 Penicillins Allergy Unknown Unknown Verified 01/28/25 16:55 Assessment & Plan Assessment & Plan (1) Anxiety: Status: Acute Code(s): F41.9 - Anxiety disorder, unspecified (2) Depression: Status: Acute Code(s): F32.A - Depression, unspecified (3) Insomnia: Status: Acute Code(s): G47.00 - Insomnia, unspecified (4) Suicide ideation: Status: Resolved Code(s): R45.851 - Suicidal ideations Plan 24-year-old male is a transfer from [facility] to [facility] yesterday for suicide ideation by spitting on the highway with plan to kill himself. On interview with his provider, patient reports psychosocial stressors which started 4 months ago and progressively worsened. 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 He states his job does not pay much and no one cares about how he feels. Also, he relocated from [place] to [place] 4 years ago. He lost his girlfriend and a best friend as a results of the move. His new friends in [place] do not value him. They do not care much about him. He feels alone. Furthermore, patients states that I never like how I look. I never like who i am. He states that he is a procrastinator who delays to get things done until he he is overwhelmed. He feels like drowning because he has no support. He lives with his mother and younger sister who care for him. However, they do not understand his situation or illness. His mother will get frustrated him rather than being supportive. He feels hopeless, helpless, and worthless. He no longer enjoys cooking but still enjoys other things. He feels disappointed because his parents wanted him to go to college and he did not. He became very overwhelmed on Monday morning upon arriving home. He was able to console himself after his mother and sister intervened. However, shortly after, he inadvertently spilled water on his computer, and that made him very upset. He took his keys, jumped in his vehicle, and drove off. He was thinking of driving into anything. While speeding on the highway, he called his friend from [place] who advised him to stop driving. He stopped the vehicle and started banging his head on the wheel and was found by the police. He currently reports moderate anxiety and depression. He denies SI/HI/AH/VH. He was on an antidepressant and hydroxyzine for 4 years until a year and a half ago - does not recall name of the antidepressant. He stopped taking the medications because he felt better. He also has history of psychotherapy 4 years ago which was helpful. Uses 5 mg of cannabis edibles daily for sleep- last use was 2 weeks ago. He also smokes 12 puffs of cannabis weekly - last use was a month ago. He drinks 5 beers once a month - last drink was 2-3 months ago. His goal for this admission is to be treated for his anxiety and depression. Formulation/Clinical reasoning: Anxiety, depression, insomnia: Psychosocial stressors and medication noncompliance may have exacerbated his symptoms. He was on an antianxiety antidepressant for 4 years until a year and a half ago. He stopped taking the medications after he felt better. The goal is to get him back on medication to regulate his mood. Will start sertraline 25 mg daily to target depression. Instructed on the risks, benefits, and potential adverse reactions of the medication. He is on trazodone for insomnia and p.r.n. hydroxyzine for anxiety. Continue current treatment regimen. Will continue to monitor and adjust medications as needed. Verbalized understanding and agreed with the plan. 01/30: Patient has been feeling less anxious. No anxiety or depression at this time. No SI/HI/AVH. Continue current treatment regimen. 01/31 MSE: Pt is alert and oriented; behavior is fidgeting in his chair, but cooperative and forthcoming; patient is not in distress; dressed in casual attire with unkempt hair but adequate hygiene; mood is described as anxious and affect congruent, downcast; eye contact appropriate; Speech is normal rate, volume and prosody and not pressured; some psychomotor retardation present; thought process is organized and goal directed; Thought content is on dealing with symptoms; aftercare; otherwise pertinent to relevant topics and without any delusional content, paranoid ideations or grandiosity; denies any SI/HI. Denies AVH and there is no evidence of perceptual disturbance. Patients insight and judgment improving Discussed patient's history of anxiety at length. Feels like things just were mounting over the past several months and that he got overwhelmed this past week. He denies any SI at all says whatever happened last week is totally resolved however he continues to endorse much anxiety would like to get back on medications since he was on medication in high school that helped. He can not remember the name of it so agrees to continue with Zoloft for now. Patient also agrees that he will much benefit from therapy and appreciates this being set up for him. 02/01 increase Zoloft; patient doing better Plan Admit to M5. CV 15 minutes check. Increased Zoloft 50 mg daily Diagnostics as needed. Collateral contact. Continue remainder of regime. Encouraged full milieu. Discharge planning. Patient educated on: diagnosis, medication risk/benefits and therapeutic strategies Informed Consent: understands Reason for continued inpatient stay Substantial Risk for: stable for discharge Time Spent With Patient Time: Total time managing care of this patient today ____ minutes.
[2025-02-01 20:00] VITALS: BP 134/79; PULSE 114; RESP 16; TEMP 36.7; O2SAT 94
[2025-02-02 08:00] VITALS: BP 133/60; PULSE 88; TEMP 36.5; O2SAT 98
[2025-02-02 19:58] VITALS: BP 144/84; PULSE 109; RESP 18; TEMP 36.4; O2SAT 96
[2025-02-02 21:24] VITALS: BP 144/84
--- NOTE | 2025-02-02 21:47 | HO.PSYCHPN ---
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 Having trouble with sleep however, constantly thinking about things. Can Reforming Machine Operator discussed options and patient agrees to try clonidine after reviewing risks/side effects MSE: Pt is alert and oriented; behavior is less fidgety; out in the milieu and socializing with select peers; cooperative, friendly and calm; patient is not in distress; dressed in casual attire with adequate hygiene and grooming; mood is described as good and affect congruent; eye contact appropriate; Speech is normal rate, volume and prosody and not pressured; no psychomotor agitation/retardation present; thought process is organized and goal directed; Thought content is on tx; otherwise pertinent to relevant topics and without any delusional content, paranoid ideations or grandiosity; denies any SI/HI. Denies AVH and there is no evidence of perceptual disturbance. Patients insight and judgment appear intact. Diagnostics Vital Signs (24Hr): Vital Signs - 24 hr 02/02/25 08:00 02/02/25 19:58 02/02/25 21:24 Temperature 97.7 F 97.6 F Pulse Rate 88 109 H Respiratory Rate 18 Blood Pressure 133/60 144/84 H 144/84 H Pulse Oximetry 98 96 Oxygen Delivery Method Room Air Room Air BMI result Body Mass Index 46.5 Medications Medications Current Medications Acetaminophen (Acetaminophen 325 Mg Tablet) 650 mg PO Q6H PRN PRN Reason: Headache/Pain, Scale 1-10 Al Hydroxide/Mg Hydroxide (Magnesium Hydrox/Alum Hydrox 30 Ml Oral.Susp) 30 ml PO Q6H PRN PRN Reason: Heartburn/Nausea Clonidine HCl (Clonidine Hcl 0.1 Mg Tablet) 0.1 mg PO BEDTIME PAO; Protocol Last Admin: 02/02/25 21:24 Dose: 0.1 mg Clonidine HCl (Clonidine Hcl 0.1 Mg Tablet) 0.1 mg PO Q4H PRN; Protocol PRN Reason: moderate anxiety Hydroxyzine HCl (Hydroxyzine Hcl 25 Mg Tablet) 25 mg PO Q6H PRN PRN Reason: mild anxiety Last Admin: 02/02/25 01:10 EST Dose: 25 mg Magnesium Hydroxide (Milk Of Magnesia 30 Ml Oral.Susp) 30 ml PO DAILY PRN PRN Reason: Constipation Nicotine Polacrilex (Nicotine Polacrilex 2 Mg Gum) 4 mg BUCCAL Q2H PRN PRN Reason: Nicotine Cravings Sertraline HCl (Sertraline Hcl 50 Mg Tablet) 50 mg PO DAILY REPLACED BY [facility] Last Admin: 02/02/25 08:43 Dose: 50 mg Trazodone HCl (Trazodone Hcl 100 Mg Tablet) 100 mg PO BEDTIME REPLACED BY [facility] Last Admin: 02/02/25 21:24 Dose: 100 mg Allergies Allergies Allergy/AdvReac Type Severity Reaction Status Date / Time amoxicillin Allergy Unknown Unknown Verified 01/28/25 16:55 Penicillins Allergy Unknown Unknown Verified 01/28/25 16:55 Assessment & Plan Assessment & Plan (1) Anxiety: Status: Acute Code(s): F41.9 - Anxiety disorder, unspecified (2) Depression: Status: Acute Code(s): F32.A - Depression, unspecified (3) Insomnia: Status: Acute Code(s): G47.00 - Insomnia, unspecified (4) Suicide ideation: Status: Resolved Code(s): R45.851 - Suicidal ideations Plan 24-year-old male is a transfer from [facility] to [facility] yesterday for suicide ideation by spitting on the highway with plan to kill himself. On interview with his provider, patient reports psychosocial stressors which started 4 months ago and progressively worsened. 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 He states his job does not pay much and no one cares about how he feels. Also, he relocated from [place] to [place] 4 years ago. He lost his girlfriend and a best friend as a results of the move. His new friends in [place] do not value him. They do not care much about him. He feels alone. Furthermore, patients states that I never like how I look. I never like who i am. He states that he is a procrastinator who delays to get things done until he he is overwhelmed. He feels like drowning because he has no support. He lives with his mother and younger sister who care for him. However, they do not understand his situation or illness. His mother will get frustrated him rather than being supportive. He feels hopeless, helpless, and worthless. He no longer enjoys cooking but still enjoys other things. He feels disappointed because his parents wanted him to go to college and he did not. He became very overwhelmed on Monday morning upon arriving home. He was able to console himself after his mother and sister intervened. However, shortly after, he inadvertently spilled water on his computer, and that made him very upset. He took his keys, jumped in his vehicle, and drove off. He was thinking of driving into anything. While speeding on the highway, he called his friend from [place] who advised him to stop driving. He stopped the vehicle and started banging his head on the wheel and was found by the police. He currently reports moderate anxiety and depression. He denies SI/HI/AH/VH. He was on an antidepressant and hydroxyzine for 4 years until a year and a half ago - does not recall name of the antidepressant. He stopped taking the medications because he felt better. He also has history of psychotherapy 4 years ago which was helpful. Uses 5 mg of cannabis edibles daily for sleep- last use was 2 weeks ago. He also smokes 12 puffs of cannabis weekly - last use was a month ago. He drinks 5 beers once a month - last drink was 2-3 months ago. His goal for this admission is to be treated for his anxiety and depression. Formulation/Clinical reasoning: Anxiety, depression, insomnia: Psychosocial stressors and medication noncompliance may have exacerbated his symptoms. He was on an antianxiety antidepressant for 4 years until a year and a half ago. He stopped taking the medications after he felt better. The goal is to get him back on medication to regulate his mood. Will start sertraline 25 mg daily to target depression. Instructed on the risks, benefits, and potential adverse reactions of the medication. He is on trazodone for insomnia and p.r.n. hydroxyzine for anxiety. Continue current treatment regimen. Will continue to monitor and adjust medications as needed. Verbalized understanding and agreed with the plan. 01/30: Patient has been feeling less anxious. No anxiety or depression at this time. No SI/HI/AVH. Continue current treatment regimen. 01/31 MSE: Pt is alert and oriented; behavior is fidgeting in his chair, but cooperative and forthcoming; patient is not in distress; dressed in casual attire with unkempt hair but adequate hygiene; mood is described as anxious and affect congruent, downcast; eye contact appropriate; Speech is normal rate, volume and prosody and not pressured; some psychomotor retardation present; thought process is organized and goal directed; Thought content is on dealing with symptoms; aftercare; otherwise pertinent to relevant topics and without any delusional content, paranoid ideations or grandiosity; denies any SI/HI. Denies AVH and there is no evidence of perceptual disturbance. Patients insight and judgment improving Discussed patient's history of anxiety at length. Feels like things just were mounting over the past several months and that he got overwhelmed this past week. He denies any SI at all says whatever happened last week is totally resolved however he continues to endorse much anxiety would like to get back on medications since he was on medication in high school that helped. He can not remember the name of it so agrees to continue with Zoloft for now. Patient also agrees that he will much benefit from therapy and appreciates this being set up for him. 02/01 increase Zoloft; patient doing better 02/02 patient remains doing well; struggles with sleep and agrees to try clonidine Plan Admit to M5. CV 15 minutes check. Start clonidine for sleep Increased Zoloft 50 mg daily Diagnostics as needed. Collateral contact. Continue remainder of regime. Encouraged full milieu. Discharge planning. Patient educated on: diagnosis, medication risk/benefits and therapeutic strategies Informed Consent: understands Reason for continued inpatient stay Substantial Risk for: stable for discharge Time Spent With Patient Time: Total time managing care of this patient today ____ minutes.
[2025-02-03 08:30] VITALS: BP 142/80; PULSE 88; RESP 16; TEMP 36.4; O2SAT 98
--- NOTE | 2025-02-03 10:48 | PM.PSYDC ---
DS: Providers Provider Date of Service: 02/03/25 Date of admission: 01/28/25 15:58 Date of discharge: 02/03/25 Primary care physician: Unknown Physician Admitting clinician: Sarwat Garcia Consults: 01/28/25 17:03 Consult to Hospitalist Routine Comment: Consulting Provider: [facility] Hospital[facility] Reason For Exam: transfer pt Attending physician on discharge: Panchito Ray DS: Diagnosis Discharge Diagnosis (1) Anxiety: Status: Acute (2) Depression: Status: Acute (3) Insomnia: Status: Acute (4) Suicide ideation: Status: Resolved DS: Medications Discharge Medications Home Medications: Previous Rx's ?Medication ?Instructions ?Recorded clonidine HCl 0.1 mg tablet 0.1 mg PO BEDTIME PRN insomnia 30 02/03/25 days #30 tabs hydroxyzine HCl 25 mg tablet 25 mg PO Q6H PRN mild anxiety 30 02/03/25 days #60 tabs sertraline 50 mg tablet 50 mg PO DAILY 30 days #30 tabs 02/03/25 trazodone 100 mg tablet 100 mg PO BEDTIME 30 days #30 tabs 02/03/25 Mental Status Exam Mental Status Exam Narrative: Pt is alert and oriented; behavior is cooperative, friendly and calm; patient is not in distress; dressed in casual attire with adequate hygiene and grooming; mood is described as good and affect congruent; eye contact appropriate; Speech is normal rate, volume and prosody and not pressured; no psychomotor agitation/retardation present; thought process is organized and goal directed; Thought content is on tx; otherwise pertinent to relevant topics and without any delusional content, paranoid ideations or grandiosity; denies any SI/HI. Denies AVH and there is no evidence of perceptual disturbance. Patients insight and judgment appear intact. DS: Summary Hospital Course Hospital Course: HPI: 24-year-old male is a transfer from [facility] to [facility] yesterday for suicide ideation by spitting on the highway with plan to kill himself. On interview with his provider, patient reports psychosocial stressors which started 4 months ago and progressively worsened. 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 He states his job does not pay much and no one cares about how he feels. Also, he relocated from [place] to [place] 4 years ago. He lost his girlfriend and a best friend as a results of the move. His new friends in [place] do not value him. They do not care much about him. He feels alone. Furthermore, patients states that I never like how I look. I never like who i am. He states that he is a procrastinator who delays to get things done until he he is overwhelmed. He feels like drowning because he has no support. He lives with his mother and younger sister who care for him. However, they do not understand his situation or illness. His mother will get frustrated him rather than being supportive. He feels hopeless, helpless, and worthless. He no longer enjoys cooking but still enjoys other things. He feels disappointed because his parents wanted him to go to college and he did not. He became very overwhelmed on Monday morning upon arriving home. He was able to console himself after his mother and sister intervened. However, shortly after, he inadvertently spilled water on his computer, and that made him very upset. He took his keys, jumped in his vehicle, and drove off. He was thinking of driving into anything. While speeding on the highway, he called his friend from [place] who advised him to stop driving. He stopped the vehicle and started banging his head on the wheel and was found by the police. He currently reports moderate anxiety and depression. He denies SI/HI/AH/VH. He was on an antidepressant and hydroxyzine for 4 years until a year and a half ago - does not recall name of the antidepressant. He stopped taking the medications because he felt better. He also has history of psychotherapy 4 years ago which was helpful. Uses 5 mg of cannabis edibles daily for sleep- last use was 2 weeks ago. He also smokes 12 puffs of cannabis weekly - last use was a month ago. He drinks 5 beers once a month - last drink was 2-3 months ago. His goal for this admission is to be treated for his anxiety and depression. Formulation/Clinical reasoning: Anxiety, depression, insomnia: Psychosocial stressors and medication noncompliance may have exacerbated his symptoms. He was on an antianxiety antidepressant for 4 years until a year and a half ago. He stopped taking the medications after he felt better. The goal is to get him back on medication to regulate his mood. Will start sertraline 25 mg daily to target depression. Instructed on the risks, benefits, and potential adverse reactions of the medication. He is on trazodone for insomnia and p.r.n. hydroxyzine for anxiety. Continue current treatment regimen. Will continue to monitor and adjust medications as needed. Verbalized understanding and agreed with the plan. Hospital Course: depressed on admission but already feeling better and SI fully resolved. Pt forthcoming discussing hx of anxiety and depression and how medication and therapy helped in past and realizing his need to restart both. Discussed family dynamic as well and father opposition to mental health treatment which contributed to patients reticence about reaching out sooner. Pt was started on Zoloft which was well tolerated; he used clonidine to good effect for insomnia. Pt's depression significantly improved and mostly resolved; anxiety remained but lessened. Pt remained in good behavioral/impulse control throughout his admission and was appropriate with peers and staff and engaged in treatment. He was feeling better and felt ready to return home, return to work and continue treatment with outpt providers. Pt was not in imminent risk for harm self or others and appropriate to return to the community for treatment. Request for dc honored. Medication: started clonidine for sleep started Zoloft 50 mg daily continued on trazodone Status at Discharge Functional status at discharge: independent ambulation Overall status at discharge: patient is back to baseline Time Spent with Patient Time attestation: Total time managing care of this patient today __40__ minutes. Time spent: Greater than 30 minutes Specific discharge activities: met with pt; discussed with team; scripts, charting, FMLA paperwork Discharge Plan Discharge Anticipated Discharge Date/Time: 02/03/25 10:48 Patient Disposition: Home, Self-Care Discharge Diagnosis: MDD, recurrent, severe, w/out psychosis, in partial remission Referrals: [facility] [Other] - 02/10/25 1:00 pm Referral Note: Follow-up medication management appointment with David Wilkins [facility] [Other] - 02/13/25 9:00 am Referral Note: Follow-up therapy appointment with Margaret Senior [Other] - 1 Week Referral Note: Discharge Medications: New clonidine HCl 0.1 mg Tablet 0.1 mg PO BEDTIME PRN (Reason: insomnia) 30 Days Qty: 30 1RF Protocol: Hold for SBP< HOLD for SBP < : 90 sertraline 50 mg Tablet 50 mg PO DAILY 30 Days Qty: 30 0RF hydroxyzine HCl 25 mg Tablet 25 mg PO Q6H PRN (Reason: mild anxiety) 30 Days Qty: 60 1RF Continued trazodone 100 mg tablet 100 mg PO BEDTIME 30 Days Qty: 30 0RF Discharge Orders: Discharge Order (Routine); Ordered 02/03/25 Ordered By: Panchito Ray Diet: Regular diet Activity on Discharge: As tolerated Stand Alone Forms: Patient Portal Discharge page, Community Support Print Language: Greek Care Plan Goals: Maintain mood and safe behaviors Take medications as prescribed Practice coping skills Continue with outpatient providers and reach out to them as needed Health Concerns: Mood stability and behaviors Plan of Treatment: Follow up with your PCP, psychiatric provider and other outpatient providers regarding above concerns Take medications as prescribed Assessment: Risk assessment at time of discharge:? Patient was interviewed prior to discharge and found to be fully oriented and without any SI or HI. Patient has improved insight and judgment and wants to continue treatment. Patient is not in imminent risk of harm to self or others and has a safety plan that includes presenting to the closest ER or calling 911 if feeling unsafe.? Patient has been observed closely by nursing and unit staff throughout admission; patient has not engaged in any behaviors that suggest dangerousness to self or others and has demonstrated appropriate behaviors and impulse control
== END 2025-02-03 11:13 | disposition home or self-care (01) | DRG 751 ==
PROVIDERS: Admitting Provider Psychiatry & Neurology Psychiatry; Visit Provider Psychiatry & Neurology Psychiatry
DX: F33.2 Major depressive disorder, recurrent severe without psychotic features (principal); R45.851 Suicidal ideations; F41.9 Anxiety disorder, unspecified; G47.00 Insomnia, unspecified; Z79.899 Other long term (current) drug therapy

== ENCOUNTER → 2025-01-28 15:58 | Outpatient (BNV) | payer OTHER, SELFPAY | PROVIDERS: Admitting Provider Psychiatry & Neurology Psychiatry; Visit Provider Nurse Practitioner Family | DX: F41.9 Anxiety disorder, unspecified (principal); F32.A Depression, unspecified; G47.00 Insomnia, unspecified | CPT/HCPCS: 90792 ==

== ENCOUNTER → 2025-01-28 15:58 | Outpatient (BNV) | payer OTHER, SELFPAY | PROVIDERS: Admitting Provider Psychiatry & Neurology Psychiatry; Visit Provider Nurse Practitioner Family | DX: R45.851 Suicidal ideations (principal) | CPT/HCPCS: 99221 ==